=== PATIENT | female | born 1945 | race Caucasian/White ===

== ENCOUNTER → 2017-02-10 | Outpatient (CLI) | payer OTHER ==
[~2017-02-10] MED LIST: CELEBREX; EVISTA60 MG; LIPITOR; NEXIUM; PRINZIDE; TOPROL XL; VAGIFEM25 MCG; ZOLOFT; ZYRTEC; [UNRECOGNIZED DRUG - OTHER]
--- NOTE | ~2017-02-10 | MY29 ---
[facility] A Service of [facility] RADIOLOGY TEXT RESULTS PATIENT: MADELIN PACKER LOCATION: [facility] : 45 UNIT #: [id number] AGE: [address]: Vida Sanchez MD SEX: F ORDER DR: [id number] [facility] [address] [place], [place] [address] [id number] O MR#: [id number] #: [id number] NAME: MADELIN PACKER : 1945 SEX: F STUDY DATE/TIME: 02/10/2017 13:54 UNIT: [facility] ROOM: STUDY DESCRIPTION: MY CHAYITO SCREENING W/ CAD BILAT Attending Physician: Vida Sanchez M.D. Ordering Physician: Vida Sanchez M.D. Primary Care Physician: Vida Sanchez M.D. MEDICAL IMAGING REPORT This report is preliminary unless electronic signature is present EXAM Digital screening mammogram 02/10/2017 HISTORY 71-year-old woman, positive family history. Two prior breast biopsies. Annual screen. COMPARISON STUDIES Comparison mammograms date to 01/10/2006 with most recent 09/19/2014. FINDINGS Digital imaging of each breast was completed utilizing screening protocol. Biopsy marker was placed on the right breast. Review includes FDA-approved CAD device. Breast parenchyma is heterogeneously dense with a small nodular parenchymal pattern in each breast. Subareolar duct prominence is noted bilaterally. I see no interval occurring mass. There are no suspicious microcalcifications. Image-guided biopsy marker projects upper central left breast. There is no architectural deformity. IMPRESSION Benign mammogram. Annual screening recommended. BIRADS II Patients over the age of 40 are entered into a reminder system with target due date for the next mammogram. A result letter will also be sent to the patient. BIRADS: 2 - Benign finding Dictated by... Yousuf Gomez M.D. THIS IS AN ELECTRONICALLY VERIFIED REPORT Yousuf Gomez M.D. at 02/13/2017 8:05 AM [facility] A Service of [facility] RADIOLOGY TEXT RESULTS PATIENT: MADELIN PACKER LOCATION: [facility] : 45 UNIT #: [id number] AGE: [address]: Vida Sanchez MD SEX: F ORDER DR: Nile TD: 02/10/2017 17:35 JOB #: [id number] MEDICAL IMAGING REPORT Page 1 of 1 COPY
== END | disposition home or self-care (01) ==
LOC: CWCC 13:02
DX: Z12.31 Encounter for screening mammogram for malignant neoplasm of breast (principal); Z80.3 Family history of malignant neoplasm of breast; Z98.890 Other specified postprocedural states
CPT/HCPCS: G0202